=== PATIENT | male | born 1950 | race Native Hawaiian/Other Pacific Islander ===

== ENCOUNTER 2017-04-09 14:18 | Outpatient (CLI) | payer OTHER | END 2017-04-10 05:20 | disposition home or self-care (01) | LOC: LABW 14:18 | DX: R10.84 Generalized abdominal pain (principal) | CPT/HCPCS: 82272; 87015; 87045; 87205; 87324; 87328; 87329; 87449; 87899 ==

== ENCOUNTER 2018-04-19 09:03 | Outpatient (CLI) | payer OTHER | END 2018-04-19 23:39 | disposition home or self-care (01) | LOC: LABW 09:03 | DX: R05 Cough (principal) | CPT/HCPCS: 87070; 87077; 87186; 87205 ==

== ENCOUNTER 2019-11-28 07:44 | Day surgery (SDC) | payer OTHER ==
[~2019-11-28] VITALS: Ht 30.5 cm; Wt 0.5 kg
== END 2019-11-28 09:03 | disposition home or self-care (01) ==
LOC: OR 07:44
PROC: 3E0T3BZ Introduction of Anesthetic Agent into Peripheral Nerves and Plexi, Percutaneous Approach (ICD-10-PCS; principal; 2019-11-28)
PROC: 3E0T33Z Introduction of Anti-inflammatory into Peripheral Nerves and Plexi, Percutaneous Approach (ICD-10-PCS; 2019-11-28)
DX: M47.816 Spondylosis without myelopathy or radiculopathy, lumbar region (principal)
CPT/HCPCS: J1100; J2001

== ENCOUNTER 2019-11-28 09:10 | Outpatient (CLI) | payer OTHER | END 2019-11-28 20:17 | disposition home or self-care (01) | LOC: CT 09:10 | DX: R10.84 Generalized abdominal pain (principal); Z87.442 Personal history of urinary calculi; R33.8 Other retention of urine; N39.0 Urinary tract infection, site not specified | CPT/HCPCS: 36415; 82565; 84520 ==

== ENCOUNTER 2019-12-26 07:27 | Day surgery (SDC) | payer OTHER ==
[~2019-12-26] VITALS: Ht 30.5 cm; Wt 0.5 kg
== END 2019-12-26 08:39 | disposition home or self-care (01) ==
LOC: OR 07:27
PROC: 3E0T3BZ Introduction of Anesthetic Agent into Peripheral Nerves and Plexi, Percutaneous Approach (ICD-10-PCS; principal; 2019-12-26)
PROC: 3E0T33Z Introduction of Anti-inflammatory into Peripheral Nerves and Plexi, Percutaneous Approach (ICD-10-PCS; 2019-12-26)
DX: M47.816 Spondylosis without myelopathy or radiculopathy, lumbar region (principal)
CPT/HCPCS: J1100; J2001

== ENCOUNTER 2022-12-14 14:56 | Outpatient (CLI) | payer OTHER | END 2022-12-14 19:10 | disposition home or self-care (01) | LOC: CT 14:56 | PROVIDERS: ATTEND Internal Medicine | DX: R31.0 Gross hematuria (principal); R10.9 Unspecified abdominal pain ==